=== PATIENT | male | born 1965 | race American Indian/Alaskan Native ===

== ENCOUNTER 2016-07-28 17:54 | Emergency (ER) | payer SELFPAY ==
[2016-07-28] MEDS ORDERED: TYLENOL ONE (20:10)
[2016-07-28] MEDS ORDERED: TYLENOL PO ONE (20:13)
--- NOTE | 2016-07-28 21:11 | XRay Report ---
FINAL REPORT PROCEDURE: XR HAND BILAT 2V TECHNIQUE: RIGHT hand radiographs, AP, lateral, and oblique views. CPT 20988-BR HISTORY: s/p fall; bilateral hand pain COMPARISON: No prior studies are available for comparison. FINDINGS: Fracture (s) and/or Dislocation(s): None . Alignment: Normal . Joint space(s): Normal . Soft tissues: Normal . Bone mineralization: Normal . Foreign bodies: None . IMPRESSION: Normal Examination .
[2016-07-29] MEDS ORDERED: ULTRAM PO ONE (04:18)
[2016-07-29 05:11] LABS: Basophils % (Auto) 0.3 % (0.0-1.8); Hematocrit 38.9 % (35.5-45.6); Hemoglobin 12.6 gm/dl (11.8-15.2); Mean Corpuscular HGB Conc 33 % (32-34); Mean Corpuscular Hemoglobin 27 pg (28-32); Mean Corpuscular Volume 82 fl (84-94); Platelet Count 186 K/mm3 (140-440); Red Blood Count 4.74 M/mm3 (3.65-5.03); Red Cell Distribution Width 13.7 % (13.2-15.2); White Blood Count 8.9 K/mm3 (4.5-11.0)
[2016-07-29 05:14] LABS: Anion Gap 18 mmol/L; Blood Urea Nitrogen 15 mg/dL (9-20); Calcium 9.3 mg/dL (8.4-10.2); Carbon Dioxide 25 mmol/L (22-30); Chloride 104.2 mmol/L (98-107); Glucose 112 mg/dL (75-100); Potassium 4.9 mmol/L (3.6-5.0); Sodium 142 mmol/L (137-145)
--- NOTE | 2016-07-29 05:23 | Cat Scan Report ---
FINAL REPORT PROCEDURE: CT HEAD/BRAIN WO CON TECHNIQUE: Computerized tomography of the head was performed without contrast material. HISTORY: pain, injury COMPARISON: No prior studies are available for comparison. FINDINGS: Skull and scalp: Normal. Paranasal sinuses: Mild opacification of the ethmoid sinuses.. Ventricles and subarachnoid spaces: Normal. Cerebrum: No evidence of hemorrhage, acute infarction or mass . Cerebellum and brainstem: No evidence of hemorrhage, acute infarction or mass. Vasculature: Normal. Comments: None. IMPRESSION: There is no evidence of an acute intracranial process.
--- NOTE | 2016-07-29 05:31 | Cat Scan Report ---
FINAL REPORT PROCEDURE: CT CERVICAL SPINE WO CON TECHNIQUE: Computerized tomography of the cervical spine was performed from the skull base to T1 without contrast material. HISTORY: pain, injury COMPARISON: No prior studies are available for comparison. FINDINGS: The alignment of the vertebral segments is normal. The heights of the vertebral bodies and the disc spaces are maintained. Mild spur formation off of the osseous structures is identified. No acute fracture or dislocation of the cervical spine. Mild circumferential bulging discs are present at the C 4 5, C5-6 and C6-7 levels. The spinal canal is adequate at all levels. The visualized portion of the airway is patent. IMPRESSION: No evidence of an acute fracture or dislocation of the cervical spine. Moderate arthritis and degenerative disc changes as described..
--- NOTE | 2016-07-29 06:32 | Emergency Department Report ---
ED Fall HPI - General Chief Complaint: Fall Stated Complaint: FALL Time Seen by Provider: 07/29/16 06:30 Source: patient, family Mode of arrival: Wheelchair - History of Present Illness Initial Comments: Afternoon this patient was attempting to demonstrate a back flip for his children. Apparently he was unsuccessful and hit his head. Subsequently he complained of neck pain and burning hands. He states that he has difficulty moving both his hands left greater than right. He also describes paresthesias in his hands as well as the burning sensation. He denies any lower extremity weakness or numbness whatsoever. He denies any numbness proximal to his wrists or any ascending type sensory symptoms. He has had no difficulty urinating or any saddle or perineal symptoms. The patient was placed in a rigid cervical collar after my evaluation. MD Complaint: other -: hour(s) Fall From: other When Fall Occurred: 1-3 hours [employer] Fall Witnessed: yes, by family Place Fall Occurred: home Loss of Consciousness: none Prolonged Down Time?: no Symptoms Prior to Fall: none Location: neck Severity: moderate, severe Quality: burning Associated Symptoms: numbness, weakness - Related Data Home Medications Medication Instructions Recorded Confirmed Last Taken No Known Home Medications [No 07/29/16 07/29/16 Unknown Reported Home Medications] Allergies Allergy/AdvReac Type Severity Reaction Status Date / Time No Known Allergies Allergy Unverified 07/28/16 19:58 ED Review of Systems ROS: Stated complaint: FALL Other details as noted in HPI Constitutional: denies: chills, fever Eyes: denies: eye pain, eye discharge, vision change ENT: denies: ear pain, throat pain Respiratory: denies: cough, shortness of breath, wheezing Cardiovascular: denies: chest pain, palpitations Endocrine: no symptoms reported Gastrointestinal: denies: abdominal pain, nausea, diarrhea Genitourinary: denies: urgency, dysuria Musculoskeletal: as per HPI. denies: back pain, joint swelling, arthralgia Skin: denies: rash, lesions Neurological: weakness, numbness, paresthesias. denies: headache Psychiatric: denies: anxiety, depression Hematological/Lymphatic: denies: easy bleeding, easy bruising ED Past Medical Hx - Past Medical History Previous Medical History?: No - Surgical History Past Surgical History?: No - Social History Smoking Status: Never Smoker Substance Use Type: None - Medications Home Medications: Home Medications Medication Instructions Recorded Confirmed Last Taken Type No Known Home Medications [No 07/29/16 07/29/16 Unknown History Reported Home Medications] ED Physical Exam - General Limitations: No Limitations General appearance: alert, in no apparent distress - Head Head exam: Present: atraumatic, normocephalic - Eye Eye exam: Present: normal appearance. Absent: scleral icterus - ENT ENT exam: Present: normal exam, mucous membranes moist - Neck Neck exam: Present: normal inspection, tenderness (paravertebral tenderness no vertebral tenderness) - Respiratory Respiratory exam: Present: normal lung sounds bilaterally. Absent: respiratory distress - Cardiovascular Cardiovascular Exam: Present: regular rate, normal rhythm. Absent: systolic murmur, diastolic murmur, rubs, gallop - GI/Abdominal GI/Abdominal exam: Present: soft, normal bowel sounds. Absent: distended, tenderness, guarding, rebound, rigid - Rectal Rectal exam: Present: deferred - Extremities Exam Extremities exam: Present: normal inspection - Back Exam Back exam: Present: normal inspection - Neurological Exam Neurological exam: Present: alert, oriented X3, CN II-XII intact, motor sensory deficit (patient has to dorsiflex his wrist. The left worse than right. His finger extension is very limited. He cannot fan out his fingers nor approximate well. Again the left hand is more affected than right. He states that he has sensation of light touch but bilaterally he has burning and or tingling) - Psychiatric Psychiatric exam: Present: normal affect, normal mood - Skin Skin exam: Present: warm, dry, intact, normal color. Absent: rash ED Course Vital Signs 07/28/16 07/28/16 07/28/16 19:59 20:18 21:18 Temperature 98 F Pulse Rate 66 Respiratory 20 20 16 Rate Blood Pressure 123/70 Blood Pressure [Right] O2 Sat by Pulse 100 Oximetry 07/29/16 07/29/16 07/29/16 02:38 05:27 05:33 Temperature 98.2 F Pulse Rate 66 77 Respiratory 22 16 18 Rate Blood Pressure Blood Pressure 152/81 156/78 [Right] O2 Sat by Pulse 96 100 Oximetry 07/29/16 07/29/16 07/29/16 08:20 08:30 08:50 Temperature Pulse Rate 84 Respiratory 16 16 16 Rate Blood Pressure Blood Pressure 138/76 [Right] O2 Sat by Pulse 100 Oximetry 05/11/17 11:30 Temperature Pulse Rate 93 H Respiratory 16 Rate Blood Pressure Blood Pressure 134/77 [Right] O2 Sat by Pulse 100 Oximetry - Reevaluation(s) Reevaluation #1: On reexamination the patient states that his left hand is now up. Improved. 2 before. He is able to dorsiflex but 4 out of 5 on both sides The risks. The patient's CT of the cervical spine showed spondylosis. Arrived the cervical spine was obtained. It showed elliptical prevertebral signal anterior to C2 through C5 which may represent complex fluid/hematoma. Degenerative changes are most pronounced C4 through 6 with slight spinal stenosis and mild heterogeneous cord signal behind C4 and C5 possibly representing myelopathy versus edema. I have requested consultation from neurosurgery at [place]. 07/29/16 12:06 Reevaluation #2: Ultimately I spoke with Dr. Murphy the neurosurgeon at [place]. He is accepted this patient. The transfer is pending. The patient remains in cervical immobilization. 07/29/16 12:53 ED Medical Decision Making - Lab Data Result diagrams: 07/29/16 04:40 07/29/16 04:40 Laboratory Results - last 24 hr 07/29/16 07/29/16 04:40 04:40 WBC 8.9 RBC 4.74 Hgb 12.6 Hct 38.9 MCV 82 L MCH 27 L MCHC 33 RDW 13.7 Plt Count 186 Lymph % (Auto) 15.6 [place] % (Auto) 7.4 H Eos % (Auto) 0.0 Baso % (Auto) 0.3 Lymph # 1.4 [place] # 0.7 Eos # 0.0 Baso # 0.0 Seg Neutrophils % 76.7 H Seg Neutrophils # 6.8 Sodium 142 Potassium 4.9 Chloride 104.2 Carbon Dioxide 25 Anion Gap 18 BUN 15 Creatinine 1.0 Estimated GFR > 60 BUN/Creatinine Ratio 15.00 Glucose 112 H Calcium 9.3 - Radiology Data Radiology results: report reviewed interpreted by me: Cervical spondylosis on CT. MR shows some abnormalities to include elliptical prevertebral signal anterior to see 2 through 5 may represent complex fluid hematoma no other definite bony cervical spine abnormality. Multilevel cervical spine degenerative changes most pronounced C4 through 5 with slight spinal stenosis or G is cord signal be signed C4-C5 possibly representing myelopathy versus edema. Critical care attestation.: If time is entered above; I have spent that time in minutes in the direct care of this critically ill patient, excluding procedure time. ED Disposition Clinical Impression: Central cord syndrome Qualifiers: Encounter type: initial encounter Qualified Code(s): S14.129A - Central cord syndrome at unspecified level of cervical spinal cord, initial encounter Disposition: DC/TX ANOTHER TYPE HEALTHCARE Is pt being admited?: No Does the pt Need Aspirin: No Condition: Stable Referrals: PRIMARY CARE,MD [Primary Care Provider] - 3-5 Days Time of Disposition: 12:54
[2016-07-29] MEDS ORDERED: MORPHINE IM ONE (07:09)
--- NOTE | 2016-07-29 11:28 | Magnetic Resonance Report ---
MRI CERVICAL SPINE WITHOUT CONTRAST INDICATION: Cervical injury. Central cord symptoms. COMPARISON: Cervical spine CT from earlier today. FINDINGS: Noncontrast axial and sagittal T1 and T2-weighted MRI of the cervical spine demonstrates intact craniocervical articulation and cervicomedullary junction. No Chiari malformation. Mild heterogeneous T2 hyperintense cord signal behind C4 and C5, possibly edema or myelomalacia. Mild hyperintense edema signal also noted in C6 vertebral body superiorly and also slightly lesser in the adjacent C5 vertebral body inferiorly. Few Modic type II degenerative changes at C5-C6 also seen. Mild edema signal also noted in C4 anteroinferiorly. Mild C3-C5 straightening with approximately 2 mm retrolisthesis of C5 over C6. Otherwise normal vertebral body stature and alignment. Grossly normal imaged thyroid. Few cervical lymph nodes, the largest approximately 1.4 x 0.7 cm in the right posterior triangle at C6 level, axial series 6 image 15. Prevertebral elliptical T2 hyperintense signal measuring approximately 1 cm AP x 2.5 cm transverse as on axial series 6, image 27 noted with craniocaudal extent of approximately 5.5 cm anterior to C2-C5 levels, somewhat heterogeneous and T1 hyperintense. On the obtained axial images: C2-C3 demonstrates mild disc/osteophyte complex with partial ventral CSF effacement, more so left paramidline as on axial series 6, image 29. C3-C4 demonstrates mild disc bulge/osteophyte complex and right more than left uncovertebral spurring with moderate right and mild left neural foraminal narrowing. Mild bilateral facet arthropathy as well. AP cord caliber approximately 6-7 mm, axial image 25. C4-C5 demonstrates mild disc bulge/osteophyte complex with ventral CSF effacement, contacting the cord. Bilateral uncovertebral spurring and neural foraminal narrowing may also be present. AP cord caliber approximately 7 mm, axial image 22. C5-C6 demonstrates mild disc degeneration and diffuse disc bulge/osteophyte complex with ventral cord flattening. AP cord caliber approximately 6-7 mm, axial image 17. Left greater than right uncovertebral spurring and neural foraminal narrowing suspected. C6-C7 suggests mild left facet arthropathy and slight left neural foraminal narrowing. C7-T1 is unremarkable. CONCLUSION: 1. Elliptical prevertebral signal anterior to C2-C5 may represent complex fluid/hematoma in an appropriate setting of trauma. No other definite acute bony cervical spine injury though suspected. 2. Multilevel cervical spine degenerative changes, most pronounced from C4-C6 with slight spinal stenosis/contacting the cord with mild heterogeneous cord signal behind C4 and C5 possibly representing myelopathy versus edema. Please correlate. Thank you for the opportunity to participate in this patient's care.
[2016-07-29] MEDS ORDERED: MORPHINE IV ONE (13:15)
[2016-07-29] MEDS ORDERED: MORPHINE ONE (13:24)
[2016-07-29 14:57] VITALS: BP 132/81
== END 2016-07-29 14:58 | disposition other institution (70) ==
LOC: ED 17:54
DX: S14.129A Central cord syndrome at unspecified level of cervical spinal cord, initial encounter (principal); W19.XXXA Unspecified fall, initial encounter; Y93.39 Activity, other involving climbing, rappelling and jumping off; Y99.8 Other external cause status; Y92.89 Other specified places as the place of occurrence of the external cause
CPT/HCPCS: 36415; 70450; 72125; 72141; 73120; 80048; 85025; 96372; 96374; 99285; J2270